=== PATIENT | female | born 1970 | race Caucasian/White ===

== ENCOUNTER 2019-03-15 11:07 | Observation (INO) ==
[2019-03-15] MEDS ORDERED: ONDANSETRON 4 MG/2 ML VIAL IV STA (11:42)
[2019-03-15] MEDS ORDERED: HYDROmorphone 2 MG/1 ML VIAL IV STA (11:42)
[2019-03-15] MEDS ORDERED: SODIUM CHLORIDE 0.9% 1,000 ML IV STA (11:43)
[2019-03-15 12:19] LABS: Basophils % 0.2 % (0.0-0.8); Eosinophils # 0.2 10*3/uL (0.0-0.87); Eosinophils % 2.3 % (0.00-10.9); Hematocrit 38.2 VOL% (35.7-47.0); Hemoglobin 12.3 GM/DL (12.0-16.0); Immature Granulocytes % 0.7 %; Immature Granulocytes Absolute 0.07 #; Lymphocytes # 0.7 10*3/uL (1.4-4.0); Lymphocytes % 7.1 % (21.3-54.2); Mean Corpuscular HGB Conc 32.2 GM/DL (32-36); Mean Corpuscular Volume 87.8 FL (87-102); Mean Platelet Volume 10.5 FL (9.6-12.0); Monocytes % 5.2 % (1.7-12.7); Neutrophils % 84.5 % (38.7-73.9); Platelet Count 240 T/CUMM (130-400); Red Blood Count 4.35 MC/CUMM (3.8-5.5); Red Cell Distribution Width 15.8 % (9.3-17.3); White Blood Count 9.6 T/CUMM (4-12)
[2019-03-15] MEDS ORDERED: ONDANSETRON 4 MG TABLET PO PRN (12:34)
[2019-03-15 12:36] LABS: INR 0.9; PT Patient Result 10.1 SECS (9.6-12.2); Partial Thromboplastin Time 23.2 SECS (20.8-36.0)
[2019-03-15 12:39] LABS: Albumin 2.5 G/DL (3.4-5.0); Bilirubin,Total 0.4 MG/DL (0.2-1.0); Osmolality,Calculated 274.7 MOS/KG (273-304); Total Protein 6.3 G/DL (6.4-8.3)
[2019-03-15] MEDS ORDERED: PROMETHAZINE INJ 25 MG in SODIUM CHLORIDE 0.9% 50 ML IV PRN (12:50)
[2019-03-15] MEDS ORDERED: BISACODYL 5 MG TABLET PO STA (12:53)
[2019-03-15] MEDS ORDERED: MAGNESIUM HYDROXIDE SUSP 30 ML UDCUP PO ONE (12:53)
[2019-03-15] MEDS ORDERED: ENOXAPARIN 40 MG/0.4 ML SYRINGE SUBCUT SCH (13:00)
[2019-03-15] MEDS ORDERED: fentaNYL 25 MCG/HR PATCH TRANSDERM SCH (13:00)
[2019-03-15] MEDS ORDERED: DEXAMETHASONE 10 MG/1 ML VIAL IV STA (13:05)
[2019-03-15] MEDS ORDERED: SODIUM PHOSPHATE ENEMA 133 ML BOTTLE RECTAL ONE (13:06)
[2019-03-15] MEDS ORDERED: LORazepam 2 MG/1 ML VIAL IV STA (13:07)
[2019-03-15] MEDS ORDERED: hydrALAZINE 20 MG/1 ML VIAL IV PRN (13:18)
[2019-03-15] MEDS: DOCUSATE SODIUM 100 MG CAPSULE PO SCH (13:35)
[2019-03-15] MEDS: MORPHINE ER 15 MG TABLET PO SCH ×2 (15:35→20:35)
[2019-03-15] MEDS: POTASSIUM CHLORIDE 10 MEQ TABLET PO SCH (17:12)
[2019-03-15] MEDS: carvediloL 25 MG TABLET PO SCH (20:35)
[2019-03-16 04:30] LABS: Basophils % 0.1 % (0.0-0.8); Eosinophils % 0.1 % (0.00-10.9); Hematocrit 38.1 VOL% (35.7-47.0); Immature Granulocytes % 0.9 %; Immature Granulocytes Absolute 0.07 #; Lymphocytes # 0.5 10*3/uL (1.4-4.0); Lymphocytes % 6.4 % (21.3-54.2); Mean Corpuscular HGB Conc 31.5 GM/DL (32-36); Mean Corpuscular Volume 88.4 FL (87-102); Mean Platelet Volume 10.7 FL (9.6-12.0); Monocytes % 4.3 % (1.7-12.7); Neutrophils % 88.2 % (38.7-73.9); Platelet Count 224 T/CUMM (130-400); Red Blood Count 4.31 MC/CUMM (3.8-5.5); Red Cell Distribution Width 16.1 % (9.3-17.3); White Blood Count 7.7 T/CUMM (4-12)
[2019-03-16 05:10] LABS: Albumin 2.5 G/DL (3.4-5.0); Bilirubin,Total 0.5 MG/DL (0.2-1.0); Calcium 9.1 MG/DL (8.5-10.1); Total Protein 6.3 G/DL (6.4-8.3)
[2019-03-16 05:51] LABS: Barbiturates Screen,Urine Negative (Negative); Benzodiazepines Screen,Urine Negative (Negative); Cannabinoid Screen,Urine Positive (Negative); Opiate Screen,Urine Positive (Negative); Phencyclidine Screen,Urine Negative (Negative)
[2019-03-16] MEDS ORDERED: LINACLOTIDE 145 MCG CAPSULE PO SCH (07:30)
[2019-03-16] MEDS ORDERED: DEXAMETHASONE 10 MG/1 ML VIAL IV SCH (07:30)
[2019-03-16] MEDS: MORPHINE ER 15 MG TABLET PO SCH (08:40)
[2019-03-16] MEDS: POTASSIUM CHLORIDE 10 MEQ TABLET PO SCH (08:41)
[2019-03-16] MEDS: carvediloL 25 MG TABLET PO SCH (08:41)
[2019-03-16] MEDS: DOCUSATE SODIUM 100 MG CAPSULE PO SCH (08:41)
[2019-03-16] MEDS ORDERED: hydroCHLOROthiazide 12.5 MG CAPSULE PO SCH (09:00)
[2019-03-16] MEDS ORDERED: PANTOPRAZOLE 20 MG TABLET PO SCH (09:00)
[2019-03-16] MEDS ORDERED: POLYETHYLENE GLYCOL POWDER 17 GM PACK PO SCH (09:00)
[2019-03-16 12:25] VITALS: BP 155/87
== END 2019-03-16 12:31 | disposition home or self-care (01) ==
LOC: EDBD → EDUNIT# → N.ED 11:07 → N.EDINP 11:07 → SUATTDRO 12:39 → N.2W 14:03
PROVIDERS: ATTEND Internal Medicine Cardiovascular Disease